=== PATIENT | female | born 1980 | race Two or more races ===

== ENCOUNTER 2016-10-06 21:01 | Emergency (ER) | payer SELFPAY ==
[~2016-10-06] VITALS: Ht 162.6 cm; Wt 122.5 kg
[2016-10-06] MEDS ORDERED: ONDANSETRON PF 4 MG/2 ML VIAL. IV PRN (21:30)
[2016-10-06 21:37] LABS: BILIRUBIN,URINE NEGATIVE (NEG); GLUCOSE,URINE NEGATIVE (NEG); NITRITE,URINE NEGATIVE (NEG); PROTEIN,URINE NEGATIVE (NEG-TRACE); UROBILINOGEN,URINE 0.2 mg/dL (0.2 mg/dL)
[2016-10-06 21:47] LABS: BACTERIA,URINE FEW /HPF (0-FEW); RBC,URINE 0 /HPF (0-2); SQUAMOUS EPITHELIAL CELL,UR MOD /LPF
[2016-10-06] MEDS: HYDROMORPHONE 2 MG/ML VIAL. IV PRN ×2 (22:04→23:30)
[2016-10-06] MEDS ORDERED: HYDR-2666 PO (22:20)
--- NOTE | 2016-10-06 22:20 | PHYS DOC ---
Past Medical History Past Medical History: Other Additional Past Medical Histor: LOWER BACK PAIN, BLOOD CLOT ON OVARY Past Surgical History: Cholecystectomy, Tonsillectomy Alcohol Use: Occasionally Drug Use: None Adult General Chief Complaint Chief Complaint: MULTIPLE COMPLAINTS HPI HPI 36-year-old female presenting to the emergency department today with low back pain that is sharp and radiates down the left side into the left knee. Not associated with numbness weakness or tingling. The pain at the present for 2-3 weeks. It is intermittent and worse with walking. She denies fecal or urinary incontinence. She denies perineal paresthesias. He denies dysuria polyuria or vaginal bleeding. It is associated with a headache. Review of systems is negative for chest pain shortness of breath abdominal pain nausea vomiting fevers or chills. All other review of systems is negative unless otherwise noted in history of present illness. Review of Systems Review of Systems SEE ABOVE. Current Medications Current Medications Current Medications Medications (Trade) Dose Ordered Sig/Matt Start Time Stop Time Status Last Admin Dose Admin Diphenhydramine HCl (Benadryl) 25 mg 1X ONCE 10/07/16 00:00 10/07/16 00:01 Cancel Hydromorphone HCl (Dilaudid) 0.5 mg PRN Q1HR PRN 10/06/16 21:30 10/07/16 01:32 DC 10/07/16 01:32 0.5 MG Ondansetron HCl (Zofran) 4 mg PRN Q30MIN PRN 10/06/16 21:30 10/06/16 22:02 4 MG Allergies Allergies Allergies Coded Allergies Type Severity Reaction Last Updated Verified No Known Drug Allergies 11/03/15 No Physical Exam Physical Exam Constitutional: Well developed, well nourished, no acute distress, non-toxic appearance. HENT: Normocephalic, atraumatic, bilateral external ears normal, oropharynx moist, no oral exudates, nose normal. [] Eyes: PERRLA, EOMI, conjunctiva normal, no discharge. Neck: no tenderness, supple, no stridor. Normal range of motion of the neck. Cardiovascular:Heart rate regular rhythm, no murmur Lungs & Thorax: Bilateral breath sounds clear to auscultation [] Abdomen: Soft nontender abdomen without rebound tenderness or guarding present. Negative McBurneys point. Negative Shirley sign. No ecchymosis present. Skin: Warm, dry, no erythema, no rash. Back: Patient has mild left-sided low back pain mild tenderness to touch. No midline tenderness present. No ecchymosis lacerations or abrasions or erythema present to the skin. Positive straight leg test on the left. Extremities: No tenderness, no cyanosis, no clubbing, ROM intact, no edema. Neurologic: Alert and oriented X 3, normal motor function, normal sensory function, no focal deficits noted. [] Psychologic: Affect normal, judgement normal, mood normal. Current Patient Data Vital Signs Vital Signs Date Time Temp Pulse Resp B/P Pulse Ox O2 Delivery O2 Flow Rate FiO2 10/07/16 01:32 16 Room Air 10/06/16 22:04 100 10/06/16 21:20 98.5 105 142/73 98.5 Lab Values Laboratory Tests Test 10/06/16 21:20 10/06/16 21:35 10/06/16 22:00 Urine Collection Type Unknown Urine Color Yellow Urine Clarity Clear Urine pH 6.0 Urine Specific Roosevelt 1.020 Urine Protein Negativemg/dL (NEG-TRACE) Urine Glucose (UA) Negativemg/dL (NEG) Urine Ketones (Stick) Negativemg/dL (NEG) Urine Blood Negative (NEG) Urine Nitrite Negative (NEG) Urine Bilirubin Negative (NEG) Urine Urobilinogen Dipstick 0.2mg/dL (0.2 mg/dL) Urine Leukocyte Esterase Negative (NEG) Urine RBC 0/HPF (0-2) Urine WBC 1-4/HPF (0-4) Urine Squamous Epithelial Cells Mod/LPF Urine Amorphous Sediment Present/HPF Urine Bacteria Few/HPF (0-FEW) Urine Mucus Mod/LPF POC Urine HCG, Qualitative Hcg negative (Negative) White Blood Count 7.7x10^3/uL (4.0-11.0) Red Blood Count 4.57x10^6/uL (3.50-5.40) Hemoglobin 13.0g/dL (12.0-15.5) Hematocrit 39.4% (36.0-47.0) Mean Corpuscular Volume 86fL (79-100) Mean Corpuscular Hemoglobin 29pg (25-35) Mean Corpuscular Hemoglobin Concent 33g/dL (31-37) Red Cell Distribution Width 15.8% (11.5-14.5) H Platelet Count 281x10^3/uL (140-400) Neutrophils (%) (Auto) 58% (31-73) Lymphocytes (%) (Auto) 30% (24-48) Monocytes (%) (Auto) 9% (0-9) Eosinophils (%) (Auto) 2% (0-3) Basophils (%) (Auto) 1% (0-3) Neutrophils # (Auto) 4.4x10^3uL (1.8-7.7) Lymphocytes # (Auto) 2.3x10^3/uL (1.0-4.8) Monocytes # (Auto) 0.7x10^3/uL (0.0-1.1) Eosinophils # (Auto) 0.2x10^3/uL (0.0-0.7) Basophils # (Auto) 0.0x10^3/uL (0.0-0.2) Erythrocyte Sedimentation Rate 30 (0-25) H Sodium Level 142mmol/L (136-145) Potassium Level 3.6mmol/L (3.5-5.1) Chloride Level 105mmol/L (98-107) Carbon Dioxide Level 27mmol/L (21-32) Anion Gap 10 (6-14) Blood Urea Nitrogen 13mg/dL (7-20) Creatinine 0.9mg/dL (0.6-1.0) Estimated GFR (Cockcroft-Gault) 71.7 Glucose Level 89mg/dL (70-99) Calcium Level 9.1mg/dL (8.5-10.1) C-Reactive Protein, Quantitative 5.9mg/L (0-3.3) H Laboratory Tests 10/06/16 22:00 Laboratory Tests 10/06/16 22:00 EKG EKG [] Radiology/Procedures Radiology/Procedures [] Course & Med Decision Making Course & Med Decision Making Pertinent Labs and Imaging studies reviewed. (See chart for details) [] 36-year-old female presenting with 1-2 weeks of intermittent atraumatic low back pain. Vital signs showed mild tachycardia likely secondary to pain. Otherwise not consistent with cauda equina syndrome. Patient was treated in the emergency department with IV pain medication nausea medication. On reevaluation the patient symptoms had improved. When I went to reevaluate the patient she began complaining of neck stiffness however after clarifying with the patient she denies her neck being stiff it just hurts when she moves her back. Pt is able to range her neck in the ED. afebrile. Patient multiple times requests lumbar MRI due to previous finding which after reviewing previous MRI seems to be a herniation from a disc. MRI repeated. No acute findings present. She was subsequently discharged home with oral pain medications and follow up with her primary care physician for further evaluation workup and care in 2-3 days. Dragon Disclaimer Dragon Disclaimer This electronic medical record was generated, in whole or in part, using a voice recognition dictation system. Departure Departure Impression: Primary Impression: Lower back pain Additional Impression: Sciatica Disposition: HOME, SELF-CARE Condition: STABLE Referrals: NO PCP (PCP) ROSA CALIXTO MD Patient Instructions: Back Exercises, Back Pain, Adult Additional Instructions: Thank you for allowing us to participate in your care today. Followup with your primary care physician in 3 days if your symptoms do not improve. If you do not have a primary care provider you can ask for a list of our primary care providers. Return to the emergency department you have any new or concerning findings. This should be evaluated by the primary care physician and any necessary consulting services for continued management within a few days after discharge. Return to emergency room if you have any new or concerning symptoms including but not limited to fever, chills, nausea, vomiting, intractable pain, any new rashes, chest pain, shortness of air, uncontrolled bleeding, difficulty breathing, and/or vision loss. You may have been prescribed medication that can change in your level of thinking and ability to operate machinery. These medications include hydrocodone and Ativan. Also, Benadryl has been known to do this as well. Be sure to check with your pharmacist and ask if the medications you've prescribed can affect your level of consciousness. I recommend not operating heavy machinery or driving while on medication such as these. Scripts Hydrocodone Bit/Acetaminophen (Hydrocodone-Apap 5-325 )1 Each Tablet1 Tab PO PRN Q6HRS PRN PAIN #15 TAB Be careful as this medication may cause you to be drowsy or tired. Do not drive on this medication. Prov:SHAWN ZHANG MD 10/06/16 Problem Qualifiers SHAWN ZHANG MD Oct 06, 2016 22:20
[2016-10-06] MEDS: DIPHENHYDRAMINE HCL 25 MG CAPSULE PO ONE ×2 (22:57→23:46)
[2016-10-06 23:06] LABS: BASO % 1 % (0-3); EOS % 2 % (0-3); HEMATOCRIT 39.4 % (36.0-47.0); LYMPH # 2.3 x10^3/uL (1.0-4.8); LYMPH % 30 % (24-48); MEAN CORPUSCULAR HEMOGLOBIN 29 pg (25-35); MEAN CORPUSCULAR HGB CONC 33 g/dL (31-37); MEAN CORPUSCULAR VOLUME 86 fL (79-100); MONO % 9 % (0-9); NEUT % 58 % (31-73); PLATELET COUNT 281 x10^3/uL (140-400); RED BLOOD COUNT 4.57 x10^6/uL (3.50-5.40); RED CELL DISTRIBUTION WIDTH 15.8 % (11.5-14.5); WHITE BLOOD COUNT 7.7 x10^3/uL (4.0-11.0)
[2016-10-06 23:15] LABS: CALCIUM 9.1 mg/dL (8.5-10.1); CREATININE 0.9 mg/dL (0.6-1.0); GFR 71.7; POTASSIUM 3.6 mmol/L (3.5-5.1)
[2016-10-07] MEDS ORDERED: DIPHENHYDRAMINE HCL 25 MG CAPSULE PO ONE
[2016-10-07] MEDS: HYDROMORPHONE 2 MG/ML VIAL. IV PRN (01:32)
--- NOTE | 2016-10-07 01:35 | RAD ---
INDICATION: Back pain. COMPARISON: November 2015 TECHNIQUE: Multiplanar, multisequence MRI images obtained through the lumbar spine. FINDINGS: Lumbar spine alignment is well maintained. No evidence of acute fracture. No perivertebral hematoma. Spinal cord and cauda equina signal is unremarkable. Individual levels are as follows: T12-L1: Central canal and neural foramina are patent. L1-2: Central canal and neural foramina are patent. L2-3: Central canal and neural foramina are patent. L3-4: Central canal and neural foramina are patent. L4-5: Left paracentral to lateral shallow disc protrusion is again seen. There is also a right lateral disc protrusion. Mild right neural foraminal narrowing. Small facet joint fluid. Mild facet hypertrophy L5-S1: Left paracentral to lateral disc protrusion is again seen with mass effect on the left lateral recess and it abuts the nerve root. Mild facet hypertrophy. IMPRESSION: Repeat demonstration of left paracentral to lateral disc protrusion at L5-S1 with effacement of the left lateral recess and the nerve root is again abutted by the disc protrusion. In addition there is a small disc protrusion at L4-5 with mild right neural foraminal narrowing. Electronically signed by: Hong Garcia (Oct 07, 2016 01:34:18)
[2016-10-07 02:40] VITALS: BP 101/70
== END 2016-10-07 02:42 | disposition home or self-care (01) ==
LOC: ER 21:01
DX: M54.5 Low back pain (principal); M54.30 Sciatica, unspecified side
CPT/HCPCS: 36415; 72148; 80048; 81001; 81025; 85027; 85651; 86140; 96374; 96375; 96376; 99285; J1170; J2405; Q0163